=== PATIENT | female | born 1985 ===

== ENCOUNTER 2017-09-10 09:10 | Emergency (ER) | payer OTHER ==
[~2017-09-10] VITALS: Ht 157.5 cm; Wt 56.7 kg
[2017-09-10] MEDS ORDERED: NORFLEX100MG PO (11:41)
[2017-09-10] MEDS ORDERED: MEDROLPACK PO (11:41)
== END 2017-09-10 12:06 | disposition home or self-care (01) ==
LOC: ER 09:10
DX: M54.5 Low back pain (principal)

== ENCOUNTER 2018-08-27 11:05 | Emergency (ER) | payer OTHER ==
[~2018-08-27] VITALS: Ht 157.5 cm; Wt 59.0 kg
[~2018-08-27 11:05] MED LIST: MEDROLPACK PO; NORFLEX100MG PO
== END 2018-08-27 15:59 | disposition home or self-care (01) ==
LOC: ER 11:05
DX: J11.1 Influenza due to unidentified influenza virus with other respiratory manifestations (principal); B96.0 Mycoplasma pneumoniae [M. pneumoniae] as the cause of diseases classified elsewhere; E86.0 Dehydration; B34.9 Viral infection, unspecified

== ENCOUNTER 2018-11-07 22:22 | Emergency (ER) | payer OTHER ==
[~2018-11-07] VITALS: Ht 157.5 cm; Wt 58.1 kg
== END 2018-11-08 02:03 ==
LOC: ER 22:22
DX: E16.1 Other hypoglycemia (principal)